=== PATIENT | male | born 1935 | race Caucasian/White ===

== ENCOUNTER 2024-04-02 15:26 | Inpatient (IN) | payer MEDICARE, OTHER ==
[~2024-04-02] VITALS: Ht 167.6 cm; Wt 52.2 kg
[2024-04-02 16:28] LABS: BASOPHILS % (AUTO) 0.2 % (0.0-2.0); EOSINOPHILS % (AUTO) 0.3 % (0.0-6.0); HEMATOCRIT 21 % (39-51); LYMPHOCYTES # (AUTO) 0.3 K/uL (0.8-4.8); MEAN CORPUSCULAR HEMOGLOBIN 28 PG (26.0-33.0); MEAN CORPUSCULAR HGB CONC 33 g/dl (31.0-36.0); MEAN CORPUSCULAR VOLUME 87 fL (80-96); MONOCYTES # (AUTO) 0.5 K/uL (0.1-1.30); MONOCYTES % (AUTO) 8.1 % (2.0-12.0); NEUTROPHILS # (AUTO) 5.1 K/uL (1.8-8.9); NEUTROPHILS % (AUTO) 86.4 % (43.0-81.0); PLATELET COUNT (AUTO) 458 K/uL (150-450); RED BLOOD CELL COUNT(AUTO) 2.43 MIL/uL (4.5-6.0); RED CELL DISTRIBUTION WIDTH 18.5 % (11.5-15.0)
[2024-04-02 16:31] LABS: HEMOGLOBIN 6.9 g/dL (13.5-17.5)
[2024-04-02 16:39] LABS: CREATININE 1.5 mg/dL (0.6-1.3); POTASSIUM 3.8 mmol/L (3.5-5.1)
[2024-04-02 16:41] LABS: INR 1.16 (0.91-1.10); PROTHROMBIN TIME 12.2 SECS (9.2-11.1)
[2024-04-02 16:43] LABS: CALCIUM, SERUM 9.2 mg/dL (8.5-10.1)
[2024-04-02 16:46] LABS: ALBUMIN 2.2 g/dL (3.4-5.0); BILIRUBIN,DIRECT 0.2 mg/dL (0.0-0.2); BILIRUBIN,TOTAL 0.9 mg/dL (0.2-1.0); TOTAL PROTEIN, SERUM 6.4 g/dL (6.4-8.2)
[2024-04-02] MEDS ORDERED: ACETAMINOPHEN ES 500 MG TABLET ONE (17:53)
[2024-04-02] MEDS: ACETAMINOPHEN ES 500 MG TABLET PO ONE (17:59)
[2024-04-03] MEDS ORDERED: ONDANSETRON HCL/PF 4 MG/2 ML VIAL IVP PRN
[2024-04-03] MEDS ORDERED: Z GUARD REMEDY 4 OZ OINT TP PRN
[2024-04-03] MEDS ORDERED: ACETAMINOPHEN 325 MG TABLET PO PRN
[2024-04-03] MEDS ORDERED: ZOLPIDEM TARTRATE 5 MG TABLET PO PRN
[2024-04-03] MEDS: IV NS 0.9% 1,000 ML IV PRN (02:59)
[2024-04-03 03:00] VITALS: BP 131/52; TEMP 98; O2SAT 100
[2024-04-03] MEDS ORDERED: TRAM50TA2 PO (03:30)
[2024-04-03] MEDS ORDERED: OLME40TA12 PO (03:30)
[2024-04-03] MEDS ORDERED: APIX5TAB4 PO (03:30)
[2024-04-03] MEDS ORDERED: TAMS-12 PO (03:30)
[2024-04-03 08:00] VITALS: BP 137/59; TEMP 97.8; O2SAT 99
[2024-04-03] MEDS: DOCUSATE SODIUM 250 MG CAPSULE PO SCH (10:16)
[2024-04-03 11:16] LABS: BASOPHILS % (AUTO) 0.4 % (0.0-2.0); EOSINOPHILS # (AUTO) 0.1 K/uL (0.0-0.7); EOSINOPHILS % (AUTO) 1.6 % (0.0-6.0); LYMPHOCYTES # (AUTO) 0.4 K/uL (0.8-4.8); LYMPHOCYTES % (AUTO) 10.3 % (20.0-44.0); MEAN CORPUSCULAR HEMOGLOBIN 28 PG (26.0-33.0); MEAN CORPUSCULAR HGB CONC 32 g/dl (31.0-36.0); MEAN CORPUSCULAR VOLUME 87 fL (80-96); MONOCYTES # (AUTO) 0.4 K/uL (0.1-1.30); MONOCYTES % (AUTO) 10.2 % (2.0-12.0); NEUTROPHILS # (AUTO) 3.3 K/uL (1.8-8.9); NEUTROPHILS % (AUTO) 77.5 % (43.0-81.0); PLATELET COUNT (AUTO) 383 K/uL (150-450); RED BLOOD CELL COUNT(AUTO) 2.19 MIL/uL (4.5-6.0); RED CELL DISTRIBUTION WIDTH 18.4 % (11.5-15.0); WHITE BLOOD COUNT (AUTO) 4.3 K/uL (4.3-11.0)
[2024-04-03 11:19] LABS: HEMATOCRIT 19 % (39-51); HEMOGLOBIN 6.1 g/dL (13.5-17.5)
[2024-04-03 11:51] LABS: BILIRUBIN,DIRECT 0.2 mg/dL (0.0-0.2); BILIRUBIN,TOTAL 0.5 mg/dL (0.2-1.0); CALCIUM, SERUM 8.5 mg/dL (8.5-10.1); CREATININE 1.3 mg/dL (0.6-1.3); MAGNESIUM 1.8 mg/dL (1.8-2.4); PHOSPHORUS 3.6 mg/dL (2.5-4.9); POTASSIUM 3.3 mmol/L (3.5-5.1); TOTAL PROTEIN, SERUM 5.6 g/dL (6.4-8.2)
[2024-04-03 11:59] LABS: ANISOCYTOSIS 1+; BASOPHILS % (MANUAL) 0 % (0.0-2.0); EOSINOPHILS % (MANUAL) 1 % (0-4); LYMPHOCYTES % (MANUAL) 11 % (16-48); MONOCYTES % (MANUAL) 7 % (0-11.0); NEUTROPHILS % (MANUAL) 81 (42-76); PLATELET ESTIMATE ADEQUATE
[2024-04-03] MEDS ORDERED: CYCLOBENZAPRINE 10 MG TABLET PO PRN (14:00)
[2024-04-03] MEDS ORDERED: HYDROMORPHONE 1 MG/1 ML DISP.SYRIN IV PRN (14:00)
[2024-04-03] MEDS ORDERED: LIDO700A30 TP (14:07)
[2024-04-03] MEDS ORDERED: APIX5TAB PO (14:07)
[2024-04-03 14:24] LABS: IRON, SERUM 135 ug/dl (50-175)
[2024-04-03] MEDS ORDERED: TRAMADOL HCL 50 MG TABLET PO PRN (14:30)
[2024-04-03 14:44] LABS: TOTAL IRON BINDING CAPACITY 214 ug/dl (250-450)
[2024-04-03] MEDS: LIDOCAINE 5% (PATCH) 1 EA PATCH TP SCH (15:11)
[2024-04-03] MEDS: POTASSIUM CHLORIDE 20 MEQ TAB.PRT.SR PO ONE (15:11)
[2024-04-03] MEDS: HYDROCODONE/APAP 5/325MG TABLET PO PRN (15:31)
[2024-04-03 15:58] LABS: OCCULT BLOOD STOOL NEGATIVE (NEGATIVE)
[2024-04-03 16:00] VITALS: BP 135/59; TEMP 97.7; O2SAT 100
[2024-04-03] MEDS: SOD FERRIC GLUC 125 MG in IV NS 0.9% 100 ML IV SCH (16:08)
[2024-04-03] MEDS: LOSARTAN POTASSIUM 50 MG TABLET PO SCH (18:51)
[2024-04-03 20:00] VITALS: BP 118/50; TEMP 97.5; O2SAT 100
[2024-04-03] MEDS: TAMSULOSIN 0.4 MG CAP.SR.24H PO SCH (22:48)
[2024-04-04] VITALS (10 sets, daily range): BP systolic 124–144; BP diastolic 53–62; TEMP 97.7–98.7; O2SAT 98–100
[2024-04-04 06:31] LABS: BASOPHILS % (AUTO) 0.4 % (0.0-2.0); EOSINOPHILS # (AUTO) 0.1 K/uL (0.0-0.7); EOSINOPHILS % (AUTO) 1.8 % (0.0-6.0); LYMPHOCYTES # (AUTO) 0.5 K/uL (0.8-4.8); MEAN CORPUSCULAR HEMOGLOBIN 29 PG (26.0-33.0); MEAN CORPUSCULAR HGB CONC 33 g/dl (31.0-36.0); MEAN CORPUSCULAR VOLUME 88 fL (80-96); MONOCYTES # (AUTO) 0.4 K/uL (0.1-1.30); MONOCYTES % (AUTO) 8.9 % (2.0-12.0); NEUTROPHILS # (AUTO) 3.8 K/uL (1.8-8.9); NEUTROPHILS % (AUTO) 78.9 % (43.0-81.0); PLATELET COUNT (AUTO) 403 K/uL (150-450); RED BLOOD CELL COUNT(AUTO) 2.27 MIL/uL (4.5-6.0); RED CELL DISTRIBUTION WIDTH 18.2 % (11.5-15.0); WHITE BLOOD COUNT (AUTO) 4.8 K/uL (4.3-11.0)
[2024-04-04 06:33] LABS: HEMATOCRIT 20 % (39-51); HEMOGLOBIN 6.5 g/dL (13.5-17.5)
[2024-04-04 07:03] LABS: CALCIUM, SERUM 8.7 mg/dL (8.5-10.1); CREATININE 1.1 mg/dL (0.6-1.3); MAGNESIUM 1.7 mg/dL (1.8-2.4); PHOSPHORUS 2.5 mg/dL (2.5-4.9); POTASSIUM 4.2 mmol/L (3.5-5.1)
[2024-04-04] MEDS ORDERED: LOSARTAN POTASSIUM 50 MG TABLET PO SCH (09:00)
[2024-04-04] MEDS: MAGNESIUM OXIDE 400 MG TABLET PO ONE (09:57)
[2024-04-04 10:14] LABS: ANISOCYTOSIS 1+; BASOPHILS % (MANUAL) 0 % (0.0-2.0); EOSINOPHILS % (MANUAL) 1 % (0-4); LYMPHOCYTES % (MANUAL) 8 % (16-48); MONOCYTES % (MANUAL) 9 % (0-11.0); NEUTROPHILS % (MANUAL) 82 (42-76); PLATELET ESTIMATE ADEQUATE
[2024-04-04 17:32] LABS: HEMOGLOBIN 7.3 g/dL (13.5-17.5)
[2024-04-05 06:45] LABS: BASOPHILS % (AUTO) 0.3 % (0.0-2.0); EOSINOPHILS # (AUTO) 0.1 K/uL (0.0-0.7); EOSINOPHILS % (AUTO) 1.9 % (0.0-6.0); HEMATOCRIT 23 % (39-51); HEMOGLOBIN 7.7 g/dL (13.5-17.5); LYMPHOCYTES # (AUTO) 0.6 K/uL (0.8-4.8); MEAN CORPUSCULAR HEMOGLOBIN 29 PG (26.0-33.0); MEAN CORPUSCULAR HGB CONC 33 g/dl (31.0-36.0); MEAN CORPUSCULAR VOLUME 87 fL (80-96); MONOCYTES # (AUTO) 0.5 K/uL (0.1-1.30); MONOCYTES % (AUTO) 9.3 % (2.0-12.0); NEUTROPHILS # (AUTO) 4.1 K/uL (1.8-8.9); NEUTROPHILS % (AUTO) 77.5 % (43.0-81.0); PLATELET COUNT (AUTO) 397 K/uL (150-450); RED BLOOD CELL COUNT(AUTO) 2.68 MIL/uL (4.5-6.0); RED CELL DISTRIBUTION WIDTH 17.3 % (11.5-15.0); WHITE BLOOD COUNT (AUTO) 5.3 K/uL (4.3-11.0)
[2024-04-05 07:09] LABS: CALCIUM, SERUM 8.8 mg/dL (8.5-10.1); CREATININE 1.1 mg/dL (0.6-1.3); MAGNESIUM 1.7 mg/dL (1.8-2.4); PHOSPHORUS 2.8 mg/dL (2.5-4.9); POTASSIUM 3.9 mmol/L (3.5-5.1)
[2024-04-05 07:30] VITALS: BP 135/58; TEMP 98.4; O2SAT 99
[2024-04-05 09:10] VITALS: BP 135/58
[2024-04-05] MEDS ORDERED: IV NS 0.9% 1,000 ML IV PRN (10:08)
[2024-04-05] MEDS: MAGNESIUM OXIDE 400 MG TABLET PO ONE (10:55)
== END 2024-04-05 19:15 | disposition home or self-care (01) | DRG 811 ==
LOC: ER 15:40 → MED 04-03 02:06 → TELE 04-05 12:12 → MED 04-05 16:20
PROVIDERS: ADMIT Nurse Practitioner Family; ATTEND Nurse Practitioner Acute Care
PROC: 30233N1 Transfusion of Nonautologous Red Blood Cells into Peripheral Vein, Percutaneous Approach (ICD-10-PCS; principal; 2024-04-04)
DX: D64.9 Anemia, unspecified (principal); N17.0 Acute kidney failure with tubular necrosis; E46 Unspecified protein-calorie malnutrition; E86.9 Volume depletion, unspecified; H81.10 Benign paroxysmal vertigo, unspecified ear; I95.9 Hypotension, unspecified; G89.29 Other chronic pain; Z98.890 Other specified postprocedural states; I10 Essential (primary) hypertension; E88.09 Other disorders of plasma-protein metabolism, not elsewhere classified; K56.41 Fecal impaction; K57.30 Diverticulosis of large intestine without perforation or abscess without bleeding; N40.0 Benign prostatic hyperplasia without lower urinary tract symptoms; Z79.01 Long term (current) use of anticoagulants; Z95.828 Presence of other vascular implants and grafts; Z87.19 Personal history of other diseases of the digestive system; Z86.79 Personal history of other diseases of the circulatory system; E83.42 Hypomagnesemia
CPT/HCPCS: 36415; 80048-TC; 80076-TC; 82272-TC; 83540-TC; 83690-TC; 83735-TC; 84100-TC; 85025-TC; 85027-TC; 85610-TC; 86850; 86850-TC; 86860; 86870; 86880; 86900; 86901; 86905; 86906; 86970; A4223; G0378; J2916; J7030; J7040; J7050; P9016